=== PATIENT | male | born 1990 | race Caucasian/White ===

== ENCOUNTER 2016-06-20 14:18 | Emergency (ER) | payer OTHER ==
[2016-06-20 14:26] VITALS: RESP 16; TEMP 97.7; O2SAT 94
--- NOTE | 2016-06-20 15:05 | EDPHY ---
H & P Stated Complaint: DIZZY, NOT FEELING WELL X 1 HR HPI/ROS: Chief complaint: Dizzy History of present illness: This is a 26-year-old male who presents to the emergency department for evaluation of dizziness. Patient reports the onset of symptoms over the last hour. He reports a generalized feeling of malaise. He has had associated numbness and tingling in all of his fingers on both hands. He has developed nausea, vomiting and diarrhea. Vomiting and diarrhea described as nonbloody. He denies precipitating factors. He denies alleviating factors. He denies other associated signs or symptoms including no headache, no chest pain, no shortness of breath. Review of systems: A 10 point review of systems was obtained and other than described above was negative - Personal History Current Tetanus Diphtheria and Acellular Pertussis (TDAP): Yes - Medical/Surgical History Hx Asthma: No Hx Chronic Respiratory Disease: No Hx Diabetes: No Hx Cardiac Disease: No Hx Renal Disease: No Hx Cirrhosis: No Hx Alcoholism: No Hx HIV/AIDS: No Hx Splenectomy or Spleen Trauma: No Other PMH: ORHTO HAND - Social History Smoking Status: Current every day smoker Constitutional: Initial Vital Signs Temperature (C) 36.5 C 06/20/16 14:23 Heart Rate 95 06/20/16 14:23 Respiratory Rate 16 06/20/16 14:23 Blood Pressure 151/85 H 06/20/16 14:23 O2 Sat (%) 94 06/20/16 14:23 O2 Delivery Mode Room Air Allergies/Adverse Reactions: Penicillins Allergy (Verified 04/04/12 20:09) Home Medications: Medication Instructions Recorded NK [No Known Home Meds] 06/20/16 Medical Decision Making ED Course/Re-evaluation: Patient is discussed with my secondary supervising physician Dr. Loyd Cordero. Patient presents to the emergency department with dizziness, paresthesias in the finger tips and an episode of vomiting and diarrhea. On presentation he is nontoxic. Vital signs are stable. Physical exam is benign. Blood studies and EKG are unremarkable. On re-evaluation patient is feeling better without intervention. He is offered Ativan but has declined. He will be discharged home. Home care is discussed. He is asked to follow up with a primary care doctor for recheck. Return precautions are given. Patient voiced understanding and agreement with plan. Differential Diagnosis: Included but not limited to anxiety, hypovolemia, electrolyte disturbances, cardiac disturbances - Data Points Laboratory Results: Laboratory Results 06/20/16 15:05 06/20/16 15:05 06/20/16 06/20/16 15:05 15:05 WBC 5.40 10^3/uL 10^3/uL (3.80-9.50) RBC 5.27 10^6/uL 10^6/uL (4.40-6.38) Hgb 16.6 g/dL g/dL (13.7-17.5) Hct 47.5 % % (40.0-51.0) MCV 90.1 fL fL (81.5-99.8) MCH 31.5 pg pg (27.9-34.1) MCHC 34.9 g/dL g/dL (32.4-36.7) RDW 11.8 % % (11.5-15.2) Plt Count 261 10^3/uL 10^3/uL (150-400) MPV 10.0 fL fL (8.7-11.7) Neut % (Auto) 67.7 % % (39.3-74.2) Lymph % (Auto) 20.9 % % (15.0-45.0) [place] % (Auto) 9.4 % % (4.5-13.0) Eos % (Auto) 0.9 % % (0.6-7.6) Baso % (Auto) 0.7 % % (0.3-1.7) Nucleat RBC Rel Count 0.0 % % (0.0-0.2) Absolute Neuts (auto) 3.65 10^3/uL 10^3/uL (1.70-6.50) Absolute Lymphs (auto) 1.13 10^3/uL 10^3/uL (1.00-3.00) Absolute Monos (auto) 0.51 10^3/uL 10^3/uL (0.30-0.80) Absolute Eos (auto) 0.05 10^3/uL 10^3/uL (0.03-0.40) Absolute Basos (auto) 0.04 10^3/uL 10^3/uL (0.02-0.10) Absolute Nucleated RBC 0.00 10^3/uL 10^3/uL (0-0.01) Immature Gran % 0.4 % % (0.0-1.1) Immature Gran # 0.02 10^3/uL 10^3/uL (0.00-0.10) Sodium 141 mEq/L mEq/L (134-144) Potassium 4.5 mEq/L mEq/L (3.5-5.2) Chloride 104 mEq/L mEq/L (97-110) Carbon Dioxide 27 mEq/l mEq/l (22-31) Anion Gap 10 mEq/L mEq/L (8-16) BUN 18 mg/dL mg/dL (7-23) Creatinine 0.9 mg/dL mg/dL (0.7-1.3) Estimated GFR > 60 Glucose 108 mg/dL H mg/dL (70-100) Calcium 9.9 mg/dL mg/dL (8.5-10.4) Departure - Departure Disposition: Home, Routine, Self-Care Clinical Impression: Dizzy Condition: Good Instructions: Anxiety (ED) Additional Instructions: Follow-up with a primary care doctor for recheck If symptoms worsen or new symptoms develop return to the emergency room for recheck Referrals: NOT,SURE [Other] - As per Instructions [facility],. [Clinic] - As per Instructions Jean-Pierre San MD [Medical Doctor] - As per Instructions
--- NOTE | 2016-06-20 15:10 | CPEKG ---
Heart Rate: 83 RR Interval: 723 P-R Interval: 136 QRSD Interval: 94 QT Interval: 352 QTC Interval: 414 P [place]: 66 QRS [place]: 80 T Wave [place]: 9 EKG Severity - NORMAL ECG - EKG Impression: SINUS RHYTHM Electronically Signed By: Loyd Cordero 20-Jun-2016 15:17:58
[2016-06-20 15:12] LABS: % IMMATURE GRANULYOCYTES 0.4 % (0.0-1.1); ABSOLUTE IMMATURE GRANULOCYTES 0.02 10^3/uL (0.00-0.10); ADD DIFF? NO; ADD MORPH? NO; ADD SCAN? NO; ATYPICAL LYMPHOCYTE FLAG 0 (0-99); FRAGMENT RBC FLAG 0 (0-99); HEMATOCRIT 47.5 % (40.0-51.0); HEMOGLOBIN 16.6 g/dL (13.7-17.5); LEFT SHIFT FLG 0 (0-99); LIPEMIA HEMOLYSIS FLAG 90 (0-99); MEAN CELL HEMOGLOBIN 31.5 pg (27.9-34.1); MEAN CELL HEMOGLOBIN CONCENTR. 34.9 g/dL (32.4-36.7); MEAN CELL VOLUME 90.1 fL (81.5-99.8); PLATELET CLUMPS FLAG 10 (0-99); PLATELET COUNT 261 10^3/uL (150-400); RED BLOOD CELL COUNT 5.27 10^6/uL (4.40-6.38); RED CELL DISTRIBUTION WIDTH 11.8 % (11.5-15.2)
[2016-06-20] MEDS ORDERED: LORazepam 1 MG TAB PO ONE (15:17)
[2016-06-20 15:26] LABS: ANION GAP 10 mEq/L (8-16); CALCIUM 9.9 mg/dL (8.5-10.4); CARBON DIOXIDE 27 mEq/l (22-31); CHLORIDE 104 mEq/L (97-110); CREATININE 0.9 mg/dL (0.7-1.3); GLOMERULAR FILTRATION RATE > 60; GLUCOSE 108 mg/dL (70-100); POTASSIUM 4.5 mEq/L (3.5-5.2); SODIUM 141 mEq/L (134-144)
[2016-06-20 15:55] VITALS: BP 120/83; PULSE 76
== END 2016-06-20 15:54 | disposition home or self-care (01) ==
DX: R42 Dizziness and giddiness (principal); F17.200 Nicotine dependence, unspecified, uncomplicated

== ENCOUNTER 2017-01-17 14:48 | Emergency (ER) | payer OTHER ==
[2017-01-17 15:05] VITALS: RESP 18
--- NOTE | 2017-01-17 17:05 | EDPHY ---
H & P Time Seen by Provider: 01/17/17 16:25 HPI/ROS: HPI Fell snowboarding yesterday. Fullness in abdomen. 27-year-old male by private vehicle with his friend. This patient was snowboarding with a helmet yesterday Black. He reports that he caught an edge, fell backwards and landed flush on his back. He complains of some left- sided lower back pain. He reports that is better since yesterday. He reports also that he was looking at himself in the near today and noticed that the left side of his upper mid abdomen seem comer than the right side. He wants this evaluated as well. Otherwise he denies any complaints. He did not hit his head. There was no loss of consciousness. Denies any neck pain. ROS: Constitutional: No fever, no chills. No weakness. Eyes: No discharge. No changes in vision. ENT: No sore throat. No nasal congestion or rhinorrhea. Respiratory: No cough. No shortness of breath. Cardiac: No chest pain, no palpitations. Gastrointestinal: No abdominal pain, no vomiting, no diarrhea. As above. Genitourinary: No hematuria. No dysuria or increased frequency with urination. Musculoskeletal: As above. No neck pain. No myalgias or arthralgias. Skin: No rashes. Neurological: No headache. No focal weakness or altered sensation. Past medical history: No significant past medical history. Social history: Here with his friend. Nonsmoker. Denies alcohol. Physical Exam: General Appearance: Alert, no distress. This patient is responding to questions appropriately and in full sentences. This patient appears well- hydrated and well-nourished. Head: Normocephalic atraumatic. Face: Facial bones are stable on palpation. Eyes: Pupils equal and round and reactive to light, no pallor or injection. No lid erythema or edema. ENT, Mouth: Mucous membranes moist. Dentition is intact. No malocclusion of the jaw. No tongue lacerations or abrasions. Pharynx is clear. The bilateral nasal canals are clear. No septal hematoma. Respiratory: There are no retractions, lungs are clear to auscultation with good air movement bilaterally. Chest wall is stable to AP and lateral palpation. Cardiovascular: Regular rate and rhythm. No murmur. Gastrointestinal: Abdomen is soft and nontender, no masses, bowel sounds normal. There is no asymmetry involving his abdomen. No evidence of hernia or other abnormalities on exam. Neurological: Motor sensory function is intact. Cranial nerves are normal. Cerebellar function intact. Skin: Warm and dry, no rashes. No lacerations, abrasions or contusions. Musculoskeletal: Neck is supple and nontender. The trachea is midline. No midline cervical, thoracic, lumbar or sacral tenderness on palpation. No flank tenderness on palpation. He does have some vague tenderness on palpation over the left sacroiliac joint. Neurologically intact in all myotomes in dermatomes of the bilateral lower extremity. Extremities are symmetrical, full range of motion. All joints in the bilateral upper and bilateral lower extremities range without pain or impingement. No tenderness on palpation of the long bones in the bilateral upper and bilateral lower extremities. Psychiatric: No agitation. No depression. Database: EKG: Imaging: Procedures: Emergency department course: Vital signs reviewed are normal. Urinalysis dip was negative for blood or other abnormalities. Vital signs reviewed and are normal. The patient feels comfortable going home with his friend. I have discussed ibuprofen dosing for pain medication. Follow-up and return to emergency department precautions reviewed with him. All of his questions were answered. He was discharged home in good condition with his friend. Differential Diagnosis: The differential diagnosis on this patient includes but is not limited to left lower back contusion. Abdominal wall hernia, volvulus, obstruction, significant spinal injury, renal laceration, other significant traumatic injury unlikely. This represents a partial list of diagnoses considered. These considerations are based on history, physical exam, past history, reassessment and diagnostic testing. Smoking Status: Current every day smoker Constitutional: Initial Vital Signs Temperature (C) 36.8 C 01/17/17 15:02 Heart Rate 92 01/17/17 15:02 Respiratory Rate 18 01/17/17 15:02 Blood Pressure 140/87 H 01/17/17 15:02 O2 Sat (%) 94 01/17/17 15:02 O2 Delivery Mode Room Air Allergies/Adverse Reactions: Penicillins Allergy (Verified 04/04/12 20:09) Home Medications: Medication Instructions Recorded NK [No Known Home Meds] 06/20/16 Departure - Departure Disposition: Home, Routine, Self-Care Clinical Impression: Contusion of lower back Condition: Good Instructions: Low Back Strain (ED), Contusion in Adults (ED) Additional Instructions: Read and follow provided instructions. Follow-up with your primary care physician in 1-2 days for re-evaluation as needed. Ibuprofen dosin mg every 6 hours with meals for the next 3 days only. Return to the emergency department for worsening symptoms or other serious concerns. Referrals: NONE *PRIMARY CARE P,. [Primary Care Provider] - As per Instructions
[2017-01-17 17:10] VITALS: BP 128/85; PULSE 78; TEMP 98.6; O2SAT 95
== END 2017-01-17 17:10 | disposition home or self-care (01) ==
DX: S30.0XXA Contusion of lower back and pelvis, initial encounter (principal); F17.200 Nicotine dependence, unspecified, uncomplicated; V00.311A Fall from snowboard, initial encounter; Y99.8 Other external cause status; Y93.23 Activity, snow (alpine) (downhill) skiing, snowboarding, sledding, tobogganing and snow tubing

== ENCOUNTER 2018-02-14 14:17 | Emergency (ER) | payer BC, OTHER ==
--- NOTE | 2018-02-14 14:39 | EDPHY ---
H & P Stated Complaint: cp x 3 daays, hx of anxiety, lasting longer than usual Time Seen by Provider: 02/14/18 14:38 HPI/ROS: HPI: This is a 28-year-old male who presents with Chief Complaint: cp x 3 days, hx of anxiety, lasting longer than usual Location: Left-sided chest Quality: Pain Duration: 3 days Signs and Symptoms: no shortness of breath at rest, no shortness of breath on exertion, no cough, no chest pain, no palpitations, no lower extremity edema, no wheezing, no orthopnea, no paroxysmal nocturnal dyspnea, no fever, no injury/ trauma, no hemoptysis, no carpal pedal spasms Timing: Acute, intermittent episodes Severity: Moderate Context: Patient is a tobacco user, presents with 3 day history of left-sided chest pain that is nonradiating in nature and not accompanied by nausea, vomiting, shortness of breath, nonradiating. Patient reports that she feels cardiac awareness and palpitations at time. February 08 he did drink"a lot of alcohol and take MDMA" but he is adamant that he drank"plenty of water." After further questioning patient relates a history of skipped beat of his heart switch I believe to be PVCs. No primary care provider. Denies any IV drug use , recent long distance travel, calf swelling. Patient reports that the symptoms wax and wane. They are currently [id number] in nature. Denies any food intolerances, indigestion, belching, early satiety. Does not have a primary care provider. Pain is not reproducible. Right-hand dominant. Modifying Factors: None Comment: ROS: A comprehensive 10 system review of systems is otherwise negative aside from elements mentioned in the history of present illness. MEDICAL/SURGICAL/SOCIAL HISTORY: Medical history: Generally healthy. Does not take any regular medications. Surgical history: Ortho Hand surgery Social history: Employed. Smoker 1 pack per day. CONSTITUTIONAL: Slightly anxious, physically fit, adult white male, awake and alert, no obvious distress HEENT: Atraumatic and normocephalic, PERRL, EOMI. Nares patent; no rhinorrhea; no nasal mucosal edema. Tympanic membranes clear. Oropharynx clear, no exudate and moist pink mucosa. Airway patent. No lymphadenopathy. No meningismus. Cardiovascular: Normal S1/S2, tachycardia, regular rhythm, without murmur rub or gallop. PULMONARY/CHEST: Symmetrical and nontender. Clear to auscultation bilaterally. Good air movement. No accessory muscle usage. ABDOMEN: Soft, nondistended, nontender, no rebound, no guarding, no peritoneal signs, no masses or organomegaly. No CVAT. EXTREMITIES: 2/2 pulses, strength 5/5, no deformities, no clubbing, no cyanosis or edema. NEUROLOGICAL: no focal neuro deficits. GCS 15. SKIN: Warm and dry, no erythema. no rash. Good capillary refill. Source: Patient Exam Limitations: No limitations - Medical/Surgical History Hx Asthma: No Hx Chronic Respiratory Disease: No Hx Diabetes: No Hx Cardiac Disease: No Hx Renal Disease: No Hx Cirrhosis: No Hx Alcoholism: No Hx HIV/AIDS: No Hx Splenectomy or Spleen Trauma: No Other PMH: ORHTO HAND - Social History Smoking Status: Current every day smoker Constitutional: Initial Vital Signs Temperature (C) 37.0 C 02/14/18 14:21 Heart Rate 118 H 02/14/18 14:21 Respiratory Rate 18 02/14/18 14:21 Blood Pressure 154/104 H 02/14/18 14:21 O2 Sat (%) 97 02/14/18 14:21 O2 Delivery Mode Room Air Allergies/Adverse Reactions: Penicillins Allergy (Verified 04/04/12 20:09) Home Medications: Medication Instructions Recorded NK [No Known Home Meds] 06/20/16 Medical Decision Making - Diagnostics EKG Interpretation: 12 lead EKG: Indication: Chest pain Rhythm: Sinus tachycardia, rate 102 beats per minute [place]: Normal Intervals: Normal QRS: Normal ST segments: Normal INTERPRETATION: No acute ischemic changes The 12 lead EKG was interpreted by myself and with attending. Imaging Results: Imaging Impressions Chest X-Ray 02/14/18 14:45 Impression: No acute cardiopulmonary process. ED Course/Re-evaluation: Vital signs reviewed and show mild tachycardia. Placed on air sampling and monitoring EKG my read shows sinus tachycardia with no acute ischemic changes IV access, laboratory studies including D-dimer and chest x-ray ordered Patient given 1 L normal saline and IV Ativan 1 mg 1525: Notified by tech that troponin 0.00 This x-ray my read shows no opacity, no effusion, no widened mediastinum, no pneumothorax Labs reviewed. No signs of leukocytosis/anemia/platelet dysfunction/ERIKA/ elevated LFTs/electrolyte imbalance/pancreatitis/VTE. HEART score= low risk I reviewed the share decision making instrument with the patient, including risk of MACE, and the patient (and family) that are in agreement with the chosen disposition. Second troponin not indicated as chest pain greater than 6 hr ago. Referral to PCP and Cardiology for Holter monitor. This patient was seen under the supervision of my secondary supervising physician. I evaluated care for this patient independently. Discussed this patient with Dr. Cordero who did not see the patient. Differential Diagnosis: Chest pain including but not limited to myocardial ischemia, pulmonary embolus, chest wall pain, pleural inflammation and pulmonary infectious causes. - Data Points Laboratory Results: Laboratory Results 02/14/18 15:05 02/14/18 15:05 02/14/18 02/14/18 02/14/18 15:08 15:05 15:05 WBC RBC Hgb Hct MCV MCH MCHC RDW Plt Count MPV Neut % (Auto) Lymph % (Auto) [place] % (Auto) Eos % (Auto) Baso % (Auto) Nucleat RBC Rel Count Absolute Neuts (auto) Absolute Lymphs (auto) Absolute Monos (auto) Absolute Eos (auto) Absolute Basos (auto) Absolute Nucleated RBC Immature Gran % Immature Gran # D-Dimer < 0.27 ug/mLFEU ug/mLFEU (0.00-0.50) Sodium 137 mEq/L mEq/L (135-145) Potassium 4.4 mEq/L mEq/L (3.5-5.2) Chloride 103 mEq/L mEq/L (97-110) Carbon Dioxide 25 mEq/l mEq/l (22-31) Anion Gap 9 mEq/L mEq/L (6-14) BUN 17 mg/dL mg/dL (7-23) Creatinine 0.9 mg/dL mg/dL (0.7-1.3) Estimated GFR > 60 Glucose 119 mg/dL H mg/dL (70-100) Calcium 9.5 mg/dL mg/dL (8.5-10.4) Total Bilirubin 0.5 mg/dL mg/dL (0.1-1.4) Conjugated Bilirubin 0.3 mg/dL mg/dL (0.0-0.5) Unconjugated Bilirubin 0.2 mg/dL mg/dL (0.0-1.1) AST 19 IU/L IU/L (17-59) ALT 15 IU/L L IU/L (21-72) Alkaline Phosphatase 58 IU/L IU/L (38-126) POC Troponin I 0.00 ng/mL ng/mL (0.00-0.08) Total Protein 7.7 g/dL g/dL (6.3-8.2) Albumin 4.9 g/dL g/dL (3.5-5.0) Lipase 76 IU/L IU/L (23-300) 02/14/18 15:05 WBC 6.93 10^3/uL 10^3/uL (3.80-9.50) RBC 5.11 10^6/uL 10^6/uL (4.40-6.38) Hgb 16.0 g/dL g/dL (13.7-17.5) Hct 45.3 % % (40.0-51.0) MCV 88.6 fL fL (81.5-99.8) MCH 31.3 pg pg (27.9-34.1) MCHC 35.3 g/dL g/dL (32.4-36.7) RDW 11.9 % % (11.5-15.2) Plt Count 262 10^3/uL 10^3/uL (150-400) MPV 9.6 fL fL (8.7-11.7) Neut % (Auto) 73.3 % % (39.3-74.2) Lymph % (Auto) 16.6 % % (15.0-45.0) [place] % (Auto) 9.2 % % (4.5-13.0) Eos % (Auto) 0.3 % L % (0.6-7.6) Baso % (Auto) 0.3 % % (0.3-1.7) Nucleat RBC Rel Count 0.0 % % (0.0-0.2) Absolute Neuts (auto) 5.08 10^3/uL 10^3/uL (1.70-6.50) Absolute Lymphs (auto) 1.15 10^3/uL 10^3/uL (1.00-3.00) Absolute Monos (auto) 0.64 10^3/uL 10^3/uL (0.30-0.80) Absolute Eos (auto) 0.02 10^3/uL L 10^3/uL (0.03-0.40) Absolute Basos (auto) 0.02 10^3/uL 10^3/uL (0.02-0.10) Absolute Nucleated RBC 0.00 10^3/uL 10^3/uL (0-0.01) Immature Gran % 0.3 % % (0.0-1.1) Immature Gran # 0.02 10^3/uL 10^3/uL (0.00-0.10) D-Dimer Sodium Potassium Chloride Carbon Dioxide Anion Gap BUN Creatinine Estimated GFR Glucose Calcium Total Bilirubin Conjugated Bilirubin Unconjugated Bilirubin AST ALT Alkaline Phosphatase POC Troponin I Total Protein Albumin Lipase Medications Given: Discontinued Medications Sodium Chloride (Ns) 1,000 mls @ 0 mls/hr IV EDNOW ONE; Wide Open PRN Reason: Protocol Stop: 02/14/18 14:46 Last Admin: 02/14/18 15:19 Dose: 1,000 mls Lorazepam (Ativan Injection) 1 mg IVP EDNOW ONE Stop: 02/14/18 14:46 Last Admin: 02/14/18 15:13 Dose: Not Given Point of Care Test Results: Chemistry 02/14/18 15:08 POC Troponin I 0.00 ng/mL ng/mL (0.00-0.08) Departure - Departure Disposition: Home, Routine, Self-Care Clinical Impression: Non-cardiac chest pain, Heart palpitations Condition: Good Instructions: Heart Palpitations (ED), Noncardiac Chest Pain (ED) Additional Instructions: Please establish care with primary care provider. Please follow-up with Cardiology in the next 5-7 days for an appointment and to determine if you need a Holter monitor. Please avoid any caffeine or tobacco products. Consume a minimum of 8-10 glasses of water or electrolyte fluid replacement drinks that include Gatorade, Powerade, Pedialyte. Return to the ER immediately if you experience new, continued or worsened chest pain, chest pain that radiates, chest pain accompanied by exertion or associated with shortness of breath, sweating, nausea, dizziness, back pain, or any other symptoms that concern you. Follow-Up: Please follow-up as noted above. Follow up sooner if your condition worsens or if you develop any new problems Call as soon as possible for an appointment. Be clear when you call for an appointment that this is an Emergency Department follow-up. Contact the Emergency Department if you are having trouble arranging follow up care. Our referrals are not based on your insurance network. When time allows, contact your insurance carrier to verify the referral physician is in your plan. If not, get a referral for an in-network pricing consultant. Please ask us if you have any questions. Referrals: Angle Amos MD [Medical Doctor] - As per Instructions Arely Laura MD [Medical Doctor] - As per Instructions
[2018-02-14] MEDS ORDERED: NS 1,000 ML IV ONE (14:45)
[2018-02-14] MEDS ORDERED: LORazepam 2 MG/ML INJ IVP ONE (14:45)
--- NOTE | 2018-02-14 15:02 | CPEKG ---
Test Reason : OPEN Blood Pressure : / mmHG Vent. Rate : 102 BPM Atrial Rate : 101 BPM P-R Int : 122 ms QRS Dur : 091 ms QT Int : 320 ms P-R-T Axes : 072 078 011 degrees QTc Int : 417 ms Sinus tachycardia Probable left atrial enlargement Confirmed by Loyd Cordero ([id number]) on 02/14/2018 3:01:28 PM Referred By: Confirmed By:Loyd Cordero
[2018-02-14 15:23] LABS: PLATELET COUNT 262 10^3/uL (150-400)
[2018-02-14 16:13] VITALS: BP 144/100
== END 2018-02-14 16:16 | disposition home or self-care (01) ==
DX: R07.89 Other chest pain (principal); R00.2 Palpitations; F17.200 Nicotine dependence, unspecified, uncomplicated; E86.9 Volume depletion, unspecified
CPT/HCPCS: 84484-ER